=== PATIENT | male | born 1980 | race Caucasian/White ===

== ENCOUNTER 2024-05-07 15:46 | Emergency (ER) | payer OTHER, MEDICAID ==
[~2024-05-07] VITALS: Ht 177.8 cm; Wt 49.9 kg
[2024-05-07 16:09] VITALS: BP 113/63; PULSE 50; RESP 16; TEMP 97.3; O2SAT 100
[2024-05-07 16:56] LABS: BASOPHILS % (AUTO) 0.9 % (0.0-2.0); EOSINOPHILS % (AUTO) 0.8 % (0.0-4.0); HEMATOCRIT 40.8 % (36-52); HEMOGLOBIN 13.1 g/dL (12.0-18.0); LYMPHOCYTES # (AUTO) 0.9 K/uL (2.0-11.5); LYMPHOCYTES % (AUTO) 15.8 % (20.5-51.1); MEAN CORPUSCULAR HEMOGLOBIN 27 pg (27-31); MEAN CORPUSCULAR HGB CONC 32 g/dL (33-37); MEAN CORPUSCULAR VOLUME 83.5 fL (80-94); MONOCYTES # (AUTO) 0.3 K/uL (0.8-1.0); MONOCYTES % (AUTO) 5.5 % (1.7-9.3); NEUTROPHILS # (AUTO) 4.2 K/uL (1.8-7.7); PLATELET COUNT (AUTO) 266 K/uL (140-450); RED BLOOD CELL COUNT(AUTO) 4.89 MIL/uL (4.20-6.10); RED CELL DISTRIBUTION WIDTH 16.1 % (11.6-13.7); WHITE BLOOD COUNT (AUTO) 5.4 K/uL (4.8-10.8)
[2024-05-07 17:14] LABS: ANION GAP 6.1 (8-16); CARBON DIOXIDE 34.1 mmol/L (21-32); CREATININE 0.6 mg/dL (0.6-1.3); POTASSIUM 4.2 mmol/L (3.5-5.1)
[2024-05-07 17:19] LABS: INR 0.97 (0.8-1.2); PARTIAL THROMBOPLASTIN TIME 26.2 secs (22-35.6); PROTHROMBIN TIME 10.2 secs (10.8-13.4)
[2024-05-07 17:33] LABS: ALANINE AMINOTRANSFERASE 125 U/L (12-78); ALBUMIN 2.5 g/dL (3.4-5.0); ALKALINE PHOSPHATASE 133 U/L (50-136); ASPARTATE AMINOTRANSFERASE 93 U/L (15-37); TOTAL BILIRUBIN 0.3 mg/dL (0.0-1.0)
[2024-05-07] MEDS ORDERED: ACET-8905 PO (18:04)
[2024-05-07 19:38] VITALS: BP 110/63; PULSE 57; RESP 16; TEMP 97.3; O2SAT 100
== END 2024-05-07 19:30 | disposition home or self-care (01) ==
LOC: MED 15:46
DX: S22.41XA Multiple fractures of ribs, right side, initial encounter for closed fracture (principal); S09.90XA Unspecified injury of head, initial encounter; G10 Huntington's disease; Z79.899 Other long term (current) drug therapy; W18.30XA Fall on same level, unspecified, initial encounter; Y93.89 Activity, other specified; Y92.89 Other specified places as the place of occurrence of the external cause; Y99.8 Other external cause status
CPT/HCPCS: 36415; 70450; 71045; 80048; 80076; 83880; 84484; 85025; 85610; 85730; 93005; 99285

== ENCOUNTER 2024-05-16 14:35 | Emergency (ER) | payer OTHER, MEDICAID ==
[~2024-05-16] VITALS: Ht 170.2 cm; Wt 63.5 kg
[~2024-05-16 14:35] MED LIST: ACET-8905 PO
[2024-05-16 14:46] VITALS: BP 93/61; PULSE 68; RESP 18; TEMP 98; O2SAT 100
[2024-05-16 17:20] VITALS: O2SAT 100
[2024-05-16 18:01] VITALS: BP 96/60; PULSE 66; RESP 17; TEMP 98.2; O2SAT 100
== END 2024-05-16 18:03 | disposition home or self-care (01) ==
LOC: MED 14:35
DX: K94.23 Gastrostomy malfunction (principal); G10 Huntington's disease; Z79.899 Other long term (current) drug therapy
CPT/HCPCS: 43762; 74240; 99284; Q0092